=== PATIENT | female | born 1950 | race Caucasian/White ===

== ENCOUNTER 2025-08-24 11:39 | Observation (INO) | payer MEDICARE, BC ==
[2025-08-24] MEDS ORDERED: Sodium Chloride 0.9% 10 ML Syringe FLUSH PRN (11:42)
[2025-08-24 15:28] LABS: APPEARANCE,URINE SLIGHTLY CLOUDY (CLEAR); GLUCOSE,URINE NEGATIVE (NEGATIVE)
[2025-08-24 15:37] LABS: EPITHELIAL CELLS,URINE FEW /LPF; OCCULT BLOOD,URINE SMALL (NEGATIVE)
[2025-08-24] MEDS: Iopamidol 755 Mg/ML 100 ML Bottle IV ONE (16:55)
[2025-08-24] MEDS: Dorzolamide/Timolol 2%-0.5% Ophth Soln 10 ML Bottle EYEBOTH SCH (22:17)
[2025-08-24] MEDS: Formoterol/Mometasone 100-5 MCG 8.8 GM Inhaler INH SCH (22:25)
[2025-08-25 07:56] LABS: BASOPHILS ABSOLUTE AUTO 0.01 10^3/uL (0.00-0.10); BASOPHILS PERCENT AUTO 0.1 % (0.0-1.0); EOSINOPHILS ABSOLUTE AUTO 0.01 10^3/uL (0.10-0.30); EOSINOPHILS PERCENT AUTO 0.1 % (1.0-3.0); IMMATURE GRAN ABSOLUTE AUTO 0.04 10^3/uL (0.00-0.04); IMMATURE GRAN PERCENT AUTO 0.3 % (0.0-0.4); LYMPHOCYTES ABSOLUTE AUTO 1.64 10^3/uL (1.00-4.00); LYMPHOCYTES PERCENT AUTO 12.0 % (20.0-40.0); MEAN PLATELET VOLUME 9.5 fL (7.4-10.4); MONOCYTES ABSOLUTE AUTO 1.02 10^3/uL (0.10-0.80); MONOCYTES PERCENT AUTO 7.5 % (2.0-8.0); NEUTROPHILS ABSOLUTE AUTO 10.94 10^3/uL (2.50-7.00); NEUTROPHILS PERCENT AUTO 80.0 % (50.0-70.0); PLATELET COUNT,PLT 272 10^3/uL (150-400); RED BLOOD CELL COUNT 3.69 10^6/uL (3.80-5.50); RED CELL DISTRIBUTION WIDTH 14.0 % (11.5-14.5); WHITE BLOOD CELL COUNT,WBC 13.66 10^3/uL (5.00-10.00)
[2025-08-25 08:13] LABS: BLOOD UREA NITROGEN,BUN 11.0 mg/dL (7-18); CARBON DIOXIDE,CO2 24.5 mmol/L (21.0-32.0); CHLORIDE,CL 104.0 mmol/L (98-107); CREATININE 0.64 mg/dL (0.51-1.17); EST CRCL DRUG DOSING (CG) 62.84 mL/min; GLUCOSE RANDOM 130.0 mg/dL (70-140); POTASSIUM,K 4.0 mmol/L (3.5-5.1); SODIUM,NA 137.0 mmol/L (136-145)
[2025-08-25 08:15] LABS: ESTIMATED GFR 94.0 mL/min (>=60)
[2025-08-25] MEDS: Trolamine Salicylate/Aloe Vera 10% Crm 85 GM Tube TOP PRN (12:29)
[2025-08-25 23:03] LABS: % TRANSFERRIN SAT 9.4 % (20.0-50.0); TIBC 159.0 ug/dL (261-478); UIBC 144.0 ug/dL (155-355)
[2025-08-26 15:19] VITALS: BP 92/52; PULSE 100
== END 2025-08-26 17:10 | disposition home or self-care (01) ==
LOC: KA.ED 11:39 → KA.MS 18:43
PROVIDERS: ADMIT Internal Medicine; ATTEND Internal Medicine
DX: R79.89 Other specified abnormal findings of blood chemistry (principal); R91.1 Solitary pulmonary nodule; D64.9 Anemia, unspecified; R00.0 Tachycardia, unspecified; I10 Essential (primary) hypertension; E78.00 Pure hypercholesterolemia, unspecified; E11.9 Type 2 diabetes mellitus without complications; Z79.82 Long term (current) use of aspirin; Z79.899 Other long term (current) drug therapy
CPT/HCPCS: 36415; 71045; 71275; 80048; 81001; 82270; 82607; 82728; 82746; 83540; 83550; 83605; 84443; 84484; 85025; 86140; 87428-QW; 93010; 96360; 96361; 96372; 99284; 99285-25; A9270-GY; G0378; J1650; J7030; J7512; Q3014; Q9967

== ENCOUNTER 2025-08-27 21:24 | Emergency (ER) | payer MEDICARE, BC ==
[2025-08-27] MEDS: Sodium Chloride 0.9% 10 ML Syringe FLUSH PRN (21:43)
[2025-08-27 21:49] LABS: BASOPHILS ABSOLUTE AUTO 0.02 10^3/uL (0.00-0.10); BASOPHILS PERCENT AUTO 0.1 % (0.0-1.0); EOSINOPHILS ABSOLUTE AUTO 0.00 10^3/uL (0.10-0.30); EOSINOPHILS PERCENT AUTO 0.0 % (1.0-3.0); IMMATURE GRAN ABSOLUTE AUTO 0.11 10^3/uL (0.00-0.04); IMMATURE GRAN PERCENT AUTO 0.6 % (0.0-0.4); LYMPHOCYTES ABSOLUTE AUTO 1.30 10^3/uL (1.00-4.00); LYMPHOCYTES PERCENT AUTO 7.0 % (20.0-40.0); MEAN PLATELET VOLUME 9.9 fL (7.4-10.4); MONOCYTES ABSOLUTE AUTO 0.91 10^3/uL (0.10-0.80); MONOCYTES PERCENT AUTO 4.9 % (2.0-8.0); NEUTROPHILS ABSOLUTE AUTO 16.28 10^3/uL (2.50-7.00); NEUTROPHILS PERCENT AUTO 87.4 % (50.0-70.0); PLATELET COUNT,PLT 282 10^3/uL (150-400); RED BLOOD CELL COUNT 3.53 10^6/uL (3.80-5.50); RED CELL DISTRIBUTION WIDTH 14.4 % (11.5-14.5); WHITE BLOOD CELL COUNT,WBC 18.62 10^3/uL (5.00-10.00)
[2025-08-27 22:07] LABS: ALANINE AMINOTRANSFERASE,ALT 26.0 U/L (14-63); ASPARTATE AMNIOTRANSFERASE,AST 25.0 U/L (15-37); BILIRUBIN TOTAL 0.6 mg/dL (0.2-1.0); BLOOD UREA NITROGEN,BUN 30.0 mg/dL (7-18); CARBON DIOXIDE,CO2 21.7 mmol/L (21.0-32.0); CHLORIDE,CL 101.0 mmol/L (98-107); CREATININE 1.07 mg/dL (0.51-1.17); EST CRCL DRUG DOSING (CG) 37.59 mL/min; GLUCOSE RANDOM 183.0 mg/dL (70-140); POTASSIUM,K 4.3 mmol/L (3.5-5.1); PROTEIN TOTAL,TP 6.6 g/dL (6.4-8.2); SODIUM,NA 134.0 mmol/L (136-145)
[2025-08-27 22:09] LABS: B-TYPE NATRIURETIC PEPTIDE,BNP 1840.0 pg/mL (0-100)
[2025-08-27] MEDS: Furosemide 40 MG/4 ML VIAL IVPUSH ONE (22:19)
[2025-08-27 22:21] LABS: ESTIMATED GFR 55.0 mL/min (>=60)
[2025-08-28 01:20] VITALS: BP 106/38; PULSE 51
== END 2025-08-27 23:23 ==
LOC: KA.ED 21:24
DX: I21.4 Non-ST elevation (NSTEMI) myocardial infarction (principal); I11.0 Hypertensive heart disease with heart failure; I50.9 Heart failure, unspecified; D72.823 Leukemoid reaction; E78.00 Pure hypercholesterolemia, unspecified; E66.9 Obesity, unspecified; E11.9 Type 2 diabetes mellitus without complications; Z79.82 Long term (current) use of aspirin; Z79.84 Long term (current) use of oral hypoglycemic drugs; Z79.899 Other long term (current) drug therapy; Z68.41 Body mass index [BMI] 40.0-44.9, adult
CPT/HCPCS: 36415; 71045; 80053; 83605; 83735; 83880; 84484; 85025; 94640; 96374; 99285-25; A9270-GY; J1938